=== PATIENT | female | born 1970 | race African-American/Black ===

== ENCOUNTER 2020-11-24 11:28 | Emergency (ER) | payer OTHER ==
[~2020-11-24] VITALS: Ht 167.6 cm; Wt 93.2 kg
[2020-11-24 11:42] VITALS: TEMP 98.9
[2020-11-24] MEDS ORDERED: CLEOCIN HCL300 MG PO (12:06)
[2020-11-24 12:15] VITALS: BP 134/89; PULSE 83
[2020-11-25] MEDS ORDERED: NORCO 325 MG-51 TAB PO (12:31)
[2020-11-25] MEDS ORDERED: PREDNISONE20 MG PO (12:31)
[2020-11-25] MEDS ORDERED: AMOXICILLIN 8751 TAB PO (12:31)
== END 2020-11-24 12:15 | disposition home or self-care (01) ==
LOC: COL.ER 11:28
DX: K08.89 Other specified disorders of teeth and supporting structures (principal); Z88.8 Allergy status to other drugs, medicaments and biological substances

== ENCOUNTER 2020-11-25 10:40 | Emergency (ER) | payer OTHER ==
[~2020-11-25] VITALS: Ht 167.6 cm; Wt 93.2 kg
[~2020-11-25 10:40] MED LIST: CLEOCIN HCL300 MG PO
[2020-11-25 11:42] VITALS: TEMP 98.2
[2020-11-25] MEDS ORDERED: PREDNISONE20 MG PO (12:31)
[2020-11-25] MEDS ORDERED: NORCO 325 MG-51 TAB PO (12:31)
[2020-11-25] MEDS ORDERED: AMOXICILLIN 8751 TAB PO (12:31)
[2020-11-25 12:53] VITALS: BP 120/80; PULSE 80
== END 2020-11-25 12:54 | disposition home or self-care (01) ==
LOC: COL.ER 10:40
DX: R22.0 Localized swelling, mass and lump, head (principal); T36.8X5A Adverse effect of other systemic antibiotics, initial encounter; K08.89 Other specified disorders of teeth and supporting structures; Z88.8 Allergy status to other drugs, medicaments and biological substances
CPT/HCPCS: J7512

== ENCOUNTER 2023-04-29 11:16 | Emergency (ER) | payer OTHER ==
[~2023-04-29] VITALS: Ht 165.1 cm; Wt 90.9 kg
[~2023-04-29 11:16] MED LIST changes: +AMOXICILLIN 8751 TAB PO; +NORCO 325 MG-51 TAB PO; +PREDNISONE20 MG PO
[2023-04-29 11:23] VITALS: TEMP 98.1
[2023-04-29 12:15] LABS: COLLECTION METHOD CLEAN CATCH
[2023-04-29 12:20] LABS: BASO # 0.1 K/mm3 (0.0-0.2); EOS # 0.1 K/mm3 (0.0-0.7); EOS % 1.6 % (0.0-4.0); GRAN # 2.8 K/mm3 (1.4-6.5); GRAN % 53.8 % (42.2-75.2); HEMATOCRIT 39.6 % (37.0-47.0); HEMOGLOBIN 13.7 g/dl (12.5-16.0); LYMPH # 1.6 K/mm3 (1.2-3.4); LYMPH % 32.2 % (20.0-51.0); MEAN CELL VOLUME 93 fl (80.0-100.0); MEAN CORPUSCULAR HEMOGLOBIN 32 pg (27-31); MEAN CORPUSCULAR HGB CONC 35 g/dl (33.0-37.0); MEAN PLATELET VOLUME 11.2 fl (7.4-10.4); MONO # 0.6 K/mm3 (0.1-0.6); MONO % 11.2 % (1.7-9.3); PLATELET COUNT 209 K/mm3 (130-400); RED BLOOD COUNT 4.24 M/mm3 (4.10-5.30); REDCELL DISTRIBUTION WIDTH-CV 12.9 % (11.5-14.5)
[2023-04-29 12:39] LABS: PH 7.5 (5.0-8.5); SQUAMOUS EPITHELIAL 0-2 /hpf (0-10); URINE APPEARANCE Clear (CLEAR/HAZY); URINE BLOOD TRACE-INTACT (NEGATIVE); URINE COLOR Yellow (YELLOW); URINE GLUCOSE Negative (NEGATIVE); URINE KETONE Negative (NEGATIVE); URINE NITRATE Negative (NEGATIVE); URINE PROTEIN(semi-quant) Negative (NEGATIVE); URINE RBC 0-2 /hpf (0-2); URINE UROBILINOGEN 0.2 E.U/dL (0.2-1.0)
[2023-04-29 12:42] LABS: ALANINE AMINOTRANSFERASE 9 U/L (0-55); ALBUMIN 4.2 gm/dL (3.5-5.0); ALKALINE PHOSPHATASE 60 U/L (40-150); ANION GAP 11 mmol/L (7-16); AST,SGOT 13 U/L (5-34); BILIRUBIN,TOTAL 0.8 mg/dL (0.2-1.2); BLOOD UREA NITROGEN 8 mg/dL (10-20); CALCIUM 10.1 mg/dL (8.4-10.2); CARBON DIOXIDE 26 mmol/L (22-29); CHLORIDE 103 mmol/L (98-107); CREATININE, serum 0.84 mg/dL (0.57-1.11); GLUCOSE 116 mg/dL (70-99); POTASSIUM 3.2 mmol/L (3.5-4.5); SODIUM 140 mmol/L (136-145); TOTAL PROTEIN 7.6 gm/dL (6.2-8.1)
[2023-04-29 12:49] LABS: TROPONIN-I < 0.010 ng/mL (0.00-0.033)
[2023-04-29] MEDS ORDERED: ZOFRAN 4MG T4 MG/TAB PO (13:29)
[2023-04-29 14:01] VITALS: BP 135/91; PULSE 64
== END 2023-04-29 13:57 | disposition home or self-care (01) ==
LOC: COL.ER 11:16
PROVIDERS: Physician Assistant
DX: U07.1 COVID-19 (principal); R20.2 Paresthesia of skin; R53.1 Weakness; R42 Dizziness and giddiness; R11.0 Nausea
CPT/HCPCS: J2405

== ENCOUNTER 2023-10-25 16:11 | Emergency (ER) | payer OTHER ==
[~2023-10-25] VITALS: Ht 289.6 cm; Wt 90.9 kg
[~2023-10-25 16:11] MED LIST changes: +ZOFRAN 4MG T4 MG/TAB PO
[2023-10-25 16:59] VITALS: BP 144/95; PULSE 80; TEMP 98.4
== END 2023-10-25 16:59 | disposition home or self-care (01) ==
LOC: COL.ER 16:11
DX: S93.401A Sprain of unspecified ligament of right ankle, initial encounter (principal); X50.1XXA Overexertion from prolonged static or awkward postures, initial encounter

== ENCOUNTER → 2023-11-17 | Outpatient (CLI) | payer OTHER | LOC: COL.RAD 12:35 | DX: M19.071 Primary osteoarthritis, right ankle and foot (principal) ==